=== PATIENT | male | born 1965 | race Caucasian/White ===

== ENCOUNTER 2024-05-05 14:57 | Inpatient (IN) | payer OTHER ==
[~2024-05-05] VITALS: Ht 175.3 cm; Wt 91.9 kg
[2024-06-01] MEDS ORDERED: LR 1,000 ML IV SCH (10:00)
[2024-06-01] MEDS ORDERED: Meclizine 25 MG TAB PO SCH (10:00)
[2024-06-02] VITALS (12 sets, daily range): BP systolic 133–165; BP diastolic 72–89; PULSE 66–100; TEMP 97.6–99
[2024-06-02 06:27] LABS: HEMATOCRIT 46.6 % (42.0-52.0); HEMOGLOBIN 16.1 g/dl (13.5-18.0); MEAN CELL VOLUME 88 fl (80.0-100.0); MEAN CORPUSCULAR HEMOGLOBIN 30 pg (27-31); MEAN CORPUSCULAR HGB CONC 35 g/dl (33.0-37.0); MEAN PLATELET VOLUME 10.7 fl (7.4-10.4); PLATELET COUNT 280 K/mm3 (130-400); RED BLOOD COUNT 5.29 M/mm3 (4.20-5.60); REDCELL DISTRIBUTION WIDTH-CV 11.9 % (11.5-14.5)
[2024-06-02] MEDS ORDERED: Gabapentin 100 MG CAP PO SCH (06:30)
[2024-06-02] MEDS ORDERED: Celecoxib 200 MG CAP PO SCH (06:30)
[2024-06-02] MEDS ORDERED: metroNIDAZOLE 500 MG/100 ML IVPB IV SCH (06:30)
[2024-06-02] MEDS ORDERED: Acetaminophen 500 MG TAB PO SCH ×2 (06:30→12:00)
[2024-06-02] MEDS ORDERED: Midazolam 2 MG/2 ML VIAL ONE (06:38)
[2024-06-02] MEDS ORDERED: fentaNYL 50 MCG/ML 5 ML VIAL ONE (06:38)
[2024-06-02] MEDS ORDERED: Rocuronium 50 MG/5 ML Multi-Dose VIAL ONE ×2 (06:38→07:47)
[2024-06-02] MEDS ORDERED: Lidocaine PF 2% (20 MG/ML) 5 ML VIAL ONE (06:38)
[2024-06-02] MEDS ORDERED: PRILOSEC 20MG20 MG PO (06:41)
[2024-06-02 06:43] LABS: CREATININE, serum 0.91 mg/dL (0.72-1.25); POTASSIUM 3.8 mEq/L (3.5-4.5)
[2024-06-02] MEDS ORDERED: ZYRTEC 10MG10 MG PO (06:45)
[2024-06-02] MEDS ORDERED: Topical Skin Adhesive 1 EACH (1 ML) TOP ONE (07:45)
[2024-06-02] MEDS ORDERED: Ondansetron 4 MG/2 ML VIAL IV PRN ×2 (08:15→10:00)
[2024-06-02] MEDS ORDERED: fentaNYL 50 MCG/ML 1 ML SYRINGE/VIAL [PACU/SDC ONLY] IV PRN (08:15)
[2024-06-02] MEDS ORDERED: HYDROmorphone 1 MG/1 ML SYRINGE [PACU/SDC ONLY] IV PRN (08:15)
[2024-06-02] MEDS ORDERED: oxyCODONE 5 MG TAB PO PRN (10:00)
[2024-06-02] MEDS ORDERED: LR 1,000 ML IV SCH (10:00)
[2024-06-02] MEDS ORDERED: Cetirizine 10 MG TAB PO PRN (10:00)
[2024-06-02] MEDS ORDERED: Ibuprofen 600 MG TAB PO PRN (10:00)
[2024-06-02] MEDS ORDERED: Morphine 4 MG/ML VIAL IV PRN (10:00)
[2024-06-02] MEDS ORDERED: Naloxone 0.4 MG/ML VIAL IV PRN (10:00)
--- NOTE | 2024-06-02 10:45 | NUR ---
arrived per bed from PACU to room 349, awake and alert and arouses when name is called but drowsy, IV infusing per dial-a-flow at 100m/hr, IV site to right hand without redness or swelling, abdomen with 5 robotic sites and small lower abd incision that are all CD&I, denies needs at this time, family at bedside
[2024-06-02] MEDS ORDERED: FLONASE NASAL S16 GM NS (11:15)
--- NOTE | 2024-06-02 11:30 | NUR ---
continues to doze between checks, arouses easily
--- NOTE | 2024-06-02 12:00 | NUR ---
has urge to void, assisted up to bathroom and after approx 10 minutes was unable to go, assisted back to bed and will try again later, lap site epigastric area has scant amount oozing and bandaid placed over this, is taking sips of water and tolerates well, offered other clear liquids but declines at this time, and daughter at bedside
--- NOTE | 2024-06-02 12:45 | NUR ---
c/o abd pain 04/28 aand medicated with scheduled tylenol and roxicodone 5mg,
--- NOTE | 2024-06-02 13:35 | NUR ---
appears to be sleeping, in bed with eyes closed, resp quiet and easy
--- NOTE | 2024-06-02 14:30 | NUR ---
sitting up in bed now and having water and jello and tolerates well
--- NOTE | 2024-06-02 14:30 | NUR ---
ELENI met with patient and Kathy ([phone]) to complete initial assessment for discharge planning. Patient and live in [place], patient sees Vonda Anderson APRN as her PCP and uses [facility] pharmacy in [place]. 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 Plan is to return home. Discharge plan: Home
--- NOTE | 2024-06-02 16:51 | NUR ---
was up to bathroom with assistance of DIVERSIFIED CROPS FARMER and voided qs and now sitting up in recliner having full liquids, asking about taking a walk and informed him that would be fine, will instruct on ordering regular food if he cares to later
--- NOTE | 2024-06-02 18:54 | NUR ---
bedskde shift report given to GABRIELA Ortiz, c/o pain 04/28 and medicated with roxicodone 5mg
--- NOTE | 2024-06-02 19:01 | NUR ---
report received from jasen roger. pt resting in bed watching tv. pt reporting abd pain, PRN given by previous shift nurse. call light in reach. all needs met at this time.
--- NOTE | 2024-06-02 19:55 | NUR ---
shift assessment complete, see documentation. pt reporting abd pain now rated 5/10 and tolerable. call light in reach. all needs met at this time.
[2024-06-03 00:10] VITALS: BP 137/71; PULSE 72; TEMP 98.2
[2024-06-03 04:18] VITALS: BP 134/77; PULSE 74; TEMP 97.8
[2024-06-03 06:20] LABS: HEMATOCRIT 38.9 % (42.0-52.0)
[2024-06-03 06:25] LABS: HEMOGLOBIN 13.5 g/dl (13.5-18.0)
[2024-06-03 06:40] LABS: CALCIUM 9.2 mg/dL (8.4-10.2); CREATININE, serum 0.88 mg/dL (0.72-1.25); MAGNESIUM 1.9 mg/dL (1.6-2.6); PHOSPHOROUS 3.7 mg/dL (2.3-4.7); POTASSIUM 3.9 mEq/L (3.5-4.5)
--- NOTE | 2024-06-03 07:10 | NUR ---
Pt doing well during bedside shift report. Sitting up in his chair with no needs or complaints verbalized, call light within reach
[2024-06-03 07:59] VITALS: BP 137/74; PULSE 76; TEMP 98
--- NOTE | 2024-06-03 10:00 | NUR ---
Pt doing well. Complaints of pain 5/10 but reports it is tolerable. Discussed pain medication with him and that he can have PRN if/when needed. Pt verbalized understanding. Dr Pool has been in to see pt. Possible discharge this afternoon, pt understands this. Pt tolerated breakfast with no complaints. His is at bedside, no needs or questions.
[2024-06-03] MEDS ORDERED: NORCO 325 MG-51 TAB PO (10:54)
[2024-06-03 11:46] VITALS: BP 129/76; PULSE 73; TEMP 98.5
--- NOTE | 2024-06-03 14:25 | NUR ---
Pt doing well. Pain well controlled with oral pain medications. Pt ambulating without difficulty and tolerated diet with no complaints of nausea or vomiting.
--- NOTE | 2024-06-03 14:28 | NUR ---
D: Aeronautical Engineering Officer stopped by room on rounds. A: Pt was resting and content with in the room. Pt has no needs right now. 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 Aeronautical Engineering Officer will follow up as needed.
--- NOTE | 2024-06-03 14:40 | NUR ---
Reviewed discharge instructions with pt and . All questions answered at this time. INT removed from right hand. Informed pt to notify nursing when he is ready to be escorted out
== END 2024-06-03 14:47 | disposition home or self-care (01) | DRG 331 ==
LOC: INPTSU 06-02 05:24 → SURG 06-02 05:24
PROVIDERS: Nurse Anesthetist, Certified Registered; ADMIT Surgery
PROC: 8E0W4CZ Robotic Assisted Procedure of Trunk Region, Percutaneous Endoscopic Approach (ICD-10-PCS; 2024-06-02)
PROC: 0DBN4ZZ Excision of Sigmoid Colon, Percutaneous Endoscopic Approach (ICD-10-PCS; principal; 2024-06-02 07:30)
DX: K57.32 Diverticulitis of large intestine without perforation or abscess without bleeding (principal)
CPT/HCPCS: A4314; J0665; J0690; J1836; J2250; J2704; J3010; J7120